=== PATIENT | male | born 1945 | race Caucasian/White ===

== ENCOUNTER 2019-02-20 16:50 | Emergency (ER) | payer MEDICARE, OTHER ==
--- OUTSIDE RECORDS SUMMARY | 2019-02-20 16:58 | XMS REPORT | Continuity of Care Document ---
:1945 External Reference #:[id number] Author Name Cecilia Castro O.D. Address [address] [place] [address] Care Team Providers Name Role Phone Yoav Bates M.D. - Family Medicine Care Team Information Knowledge Management Consultant [phone] Problems Active Problems Provider Date Superficial punctate keratitis Cecilia Castro O.D. Onset: 12/22/2017 Epiretinal membrane Cecilia Castro O.D. 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 Onset: 01/31/2019 Social History Type Date Description Comments Sex Unknown ETOH Use Consumes 3-4 beers per day Tobacco Use Start: Unknown Patient has never smoked Recreational Drug Use Denies Drug Use Smoking Status Reviewed: 01/31/19 Patient has never smoked Allergies, Adverse Reactions, Alerts Active Allergies Reaction Severity Comments Date Watermelon Throat Swelling Severe 01/31/2019 Medications Active Medications SIG Qnty Indications Ordering Provider Date Atorvastatin Calcium Unknown 40mg Tablets Immunizations Description No Information Available Vital Signs Description No Information Available Results Description No Information Available Procedures Date Code Description Status 01/16/2019 24493 Patient No Show For Appt Completed Medical Devices Description No Information Available Encounters Description No Information Available Assessments Date Code Description Provider 01/31/2019 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 01/31/2019 H25.13 Age-related nuclear cataract, bilateral Cecilia Castro O.D. Plan of Treatment 01/31/2019 - Cecilia Castro O.D.H35.373 Puckering of macula, bilateralComments: Smoking can increase the risk of developing or worsening any eye related disease , as well as affect your overall health. If you are a smoker, we strongly recommend that you quit.If you are not a smoker, we strongly recommend that you do not start. A Macular Pucker is a wrinkling of the retina tissue. It can cause distortion in your vision. Please call the office if you notice a decrease or new distortion in your vision.Follow up:1 YEAR OCT MACH25.13 Age- related nuclear cataract, bilateralComments:You have nuclear sclerosis, which is hardening of your natural lens. This is normal as a person ages. Functional Status Description No Information Available Mental Status Description No Information Available Referrals Description No Information Available
--- NOTE | 2019-02-20 17:53 | UC ---
Hand/Wrist HPI - HPI Summary HPI Summary: 73 yo male presents with tick bite and left wrist pain. He tells me that 1 week ago he had a tick bite to his left forearm that he removed within 24 hours - was very small. Since that time he has been noticing some pain in his dorsal left wrist that he described as an ache. He is very active with his hands doing manual labor activities and yard work - denies specific injury. Resting his wrist makes it feel better. He is concerned he has lyme disease effecting his wrist. Denies numbness, tingling, radiation of pain, injury, fevers, chills, body aches. - History Of Current Complaint Stated Complaint: WRIST PAIN AND POSS TICK Time Seen by Provider: 02/20/19 17:52 Hx Obtained From: Patient Onset/Duration: Sudden Onset Severity Initially: Mild Severity Currently: Mild Pain Intensity: 3 Pain Scale Used: 0-10 Numeric - Allergies/Home Medications Allergies/Adverse Reactions: Allergies Allergy/AdvReac Type Severity Reaction Status Date / Time watermelon Allergy throat Verified 02/20/19 18:03 swelling Home Medications: Home Medications Aspirin/Caffeine [Kimber Back & Body Pain Ex] 1 tab PO PRN 02/20/19 [History] PMH/Surg Hx/FS Hx/Imm Hx - Additional Past Medical History Additional PMH: Erectile dysfunction Endocrine History: Dyslipidemia - Surgical History Surgical History: Yes Other Surgical History: Tonsillectomy - Family History Known Family History: Positive: Unknown - Social History Occupation: Retired Lives: With Family Alcohol Use: Occasionally Substance Use Type: None Smoking Status (MU): Never Smoked Tobacco Review of Systems All Other Systems Reviewed And Are Negative: No Constitutional: Positive: Negative Skin: Positive: Other - Tick bite Respiratory: Positive: Negative Cardiovascular: Positive: Negative Neurovascular: Positive: Negative Musculoskeletal: Positive: Other: - Left wrist pain Neurological: Positive: Negative Psychological: Positive: Negative Physical Exam - Summary Physical Exam Summary: GENERAL: NAD. WDWN. No pain distress. SKIN: LEFT FOREARM: there is a 5mm diameter of mild erythema with central 1mm area of superficial skin loss - healing. No streaking, bleeding, or drainage. CHEST: No accessory muscle use. Breathing comfortably and in no distress. CV: Pulses intact radial and ulnar. Cap refill <2seconds MSK: LEFT WRIST: NTTP. FROM. 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 No edema or obvious bony deformities. No snuffbox tenderness. NEURO: Alert. Sensations intact hand and all fingers. PSYCH: Age appropriate behavior. Triage Information Reviewed: Yes Vital Signs: Vital Signs: Temp Pulse Resp BP Pulse Ox 98.4 F 58 16 134/80 99 02/20/19 17:58 02/20/19 17:58 02/20/19 17:58 02/20/19 17:58 02/20/19 17:58 Vital Signs Reviewed: Yes Diagnostics - Radiology Wrist XR Radiology Interpretation Completed By: ED Physician Summary of Radiographic Findings: NAD Hand/Wrist Course/Dx - Course Course Of Treatment: Left forearm area consistent with tick bite. Left wrist discomfort very unlikely from tick bite as 1) pt removed within 24hours and 2) joint pain from lyme disease likely takes weeks to months. Discussed this with pt and recommended lyme disease testing with his PCP in 4-6 weeks. XR of wrist today wet read negative - suspect tendinitis given his active lifestyle. Recommended RICE therapy and f/u with his PCP if symptoms do not improve - Differential Dx/Diagnosis Provider Diagnosis: Tick bite, Left wrist pain Discharge ED - Sign-Out/Discharge Documenting (check all that apply): Patient Departure All imaging exams completed and their final reports reviewed: No - Discharge Plan Condition: Stable Disposition: HOME Patient Education Materials: Tendinitis (ED) Referrals: Yoav Bates MD [Primary Care Provider] - Additional Instructions: If you develop a fever, shortness of breath, chest pain, new or worsening symptoms - please call your PCP or go to the ED immediately. The x-ray of your wrist appear normal this evening. I recommend that you rest your wrist and apply ice to the area. Your wrist pain is not due to the recent bite on your arm, but I recommend you schedule an appointment with your primary doctor in 1 month for lyme disease testing given your (potential) recent tick bite - Billing Disposition and Condition Condition: STABLE Disposition: Home
[2019-02-20 18:03] VITALS: BP 134/80
== END 2019-02-20 18:29 | disposition home or self-care (01) ==
LOC: UCEAST 16:50
DX: S60.862A Insect bite (nonvenomous) of left wrist, initial encounter (principal); M25.532 Pain in left wrist; Z91.018 Allergy to other foods; W57.XXXA Bitten or stung by nonvenomous insect and other nonvenomous arthropods, initial encounter; Y92.9 Unspecified place or not applicable
CPT/HCPCS: 99211; G0463